=== PATIENT | female | born 1940 | race Caucasian/White ===

== ENCOUNTER 2023-03-25 17:36 | Emergency (ER) | payer OTHER, SELFPAY ==
[2023-03-25 17:39] VITALS: BP 196/105
[2023-03-25 17:40] VITALS: BP 196/105
[2023-03-25 17:56] LABS: % Basophils 0.2 % (0-2); % Immature Granulocytes 0.3 % (0-0.5); % Lymphocytes 21.4 % (20.5-51.1); % Monocytes 5.4 % (1.7-9.3); % Neutrophils 71.7 % (42.2-75.2); Absolute Eosinophils 0.1 10^3/uL (0-0.7); Absolute Monocytes 0.5 10^3/uL (0.1-0.6); Absolute Neutrophils 6.8 10^3/uL (1.4-6.5); Hemoglobin 14.3 g/dL (12.0-16.0); Mean Corp Hgb Conc. 34.9 g/dL (33.0-37.0); Mean Corpuscular Volume 88.7 fL (81.0-99.0); Mean Platelet Volume 9.8 fL (7.4-10.4); Nucleated Red Blood Cells % 0 %; Platelet Count 163 10^3/uL (130-400); Red Blood Cell Count 4.62 10^6/uL (4.20-5.40); Red Cell Dist. Width 12.8 % (11.5-14.5); White Blood Cell Count 9.4 10^3/uL (4.8-10.8)
[2023-03-25 18:00] VITALS: BP 177/98
[2023-03-25 18:03] LABS: Urine Albumin Negative (Neg - Trace); Urine Bilirubin Negative (Negative); Urine Character Clear (Clear); Urine Color Yellow; Urine Glucose Negative (Negative); Urine Ketone Negative (Negative); Urine Leukocyte Trace (Negative); Urine Nitrite Negative (Negative); Urine Occult Blood Trace (Negative); Urine Specific Gravity 1.015 (<1.030); Urine Urobilinogen Negative (Neg - 1+)
[2023-03-25 18:13] LABS: ALT (SGPT) 24 U/L (0-35); AST (SGOT) 35 U/L (14-36); Albumin 4.4 g/dl (3.5-5.0); Alkaline Phosphatase 75 U/L (38-126); Blood Urea Nitrogen 27 mg/dl (7-17); Calcium 9.1 mg/dl (8.4-10.2); Carbon Dioxide 29 mmol/L (22-30); Chloride 104 mmol/L (98-107); Glucose 98 mg/dl (70-99); Potassium 4.1 mmol/L (3.5-5.1); Sodium 136 mmol/L (135-145); Total Bilirubin 0.8 mg/dl (0.2-1.3); Total Protein 6.7 g/dl (6.3-8.2); eGFR > 60.00
[2023-03-25 18:13] LABS: Urine Bacteria Moderate (Negative); Urine Red Blood Cell 0-2 /HPF (0-2); Urine Squamous Cell 16-20 /LPF (Few)
--- NOTE | 2023-03-25 18:26 | ED.GENMED ---
History of Present Illness
General
Chief Complaint: Abdominal Symptoms
Source: family (Daughters who are caregivers and lives with the patient are at bedside providing some of the history)
Exam Limitations: dementia
Time Seen by Provider: 03/25/23 18:26
Nursing documentation reviewed up to this point in time: agreed with
Travel History
Have you had any contact with someone who has COVID-19?: No
Do you have any symptoms of coronavirus? Fever > 100 degrees, chills, cough, shortness of breath, sore throat, loss of taste or smell, muscle aches, or headache?: No
History of Present Illness
History of Present Illness:
82-year-old patient with history of Alzheimer's, TIA, HTN, HLD presents from home for abdominal pain. Daughter states patient has had abdominal pain since this morning, that she was doubled over in pain earlier this evening, patient was asked if
she wants to come to the hospital and usually she will say no but she said she wanted to come this time. There has been no fever, no vomiting or diarrhea. Patient had a bowel movement this morning. She has had no difficulty, burning or urgency to
urinate. She has been eating and drinking as usual..
Past History
Past History
ED Past Medical History: CVA, HTN, Hypercholesterolemia and Other (Dementia)
ED Past Surgical History: Other (Hernia repair)
Social History
Tobacco: Non-smoker
Living: with family
Review of Systems
Review of Systems
Allergies reviewed?: Yes
All Other Systems: ROS reviewed and negative except as documented in HPI and ROS
Constitutional: Denies fever, fatigue or chills
Respiratory: Denies trouble breathing
Cardiac: Denies chest pain
ABD/GI: Reports abdominal pain; Denies nausea, vomiting, diarrhea, constipated or anorexia
: Denies dysuria, frequency or difficulty voiding
Musculoskeletal: Denies edema
Skin: Reports no symptoms
Neurological: Denies weakness
Phy Exam
Physical Exam
Physical Exam:
GENERAL: No acute distress. Alert, confused from dementia, does not know where she is
CONSTITUTIONAL: Afebrile.
EYES: PERRL, conjunctivae normal
ENMT: moist mucus membranes, Pharynx nl
RESPIRATORY: Regular respirations, nonlabored, lungs clear.
CARDIOVASCULAR: Regular rate and rhythm, no murmurs, no rubs.
GI: Soft, nondistended, patient winces mildly with palpation of all areas of her abdomen. No palpable masses. Normal BS
MUSCULOSKELETAL: Moves with ease. Well perfused.
SKIN: Warm, dry, pale
PSYCH: Normal mood and affect. Well kept, interactive and appropriate
NEUROLOGIC: Awake, alert, pleasant, confused. No focal neurological deficits
Course
Orders/Labs/Results
Orders:
Orders
03/25/23 17:50
Complete Blood Count/With Diff Urgent
Comprehensive Metabolic Panel Urgent
03/25/23 17:57
Urinalysis Reflex To Culture Urgent
Date Specimen was Collected: 03/25/23
Time Specimen was Collected: 17:53
Urine Microscopic Reflex Cult Urgent
Urine Culture Urgent
ELLE Source: U
Specimen Description:
Date Specimen was Collected: 03/25/23
Time Specimen was Collected: 17:53
03/25/23 18:27
CT Abd/Pel (IV only)-DH only Urgent
Comment:
Reason For Exam: general abd pain, pt demented
Abnormal Lab Results
03/25/23 03/25/23
17:50 17:57
Absolute Neuts (auto) 6.8 H 10^3/uL
(1.4-6.5)
BUN 27 H mg/dl
(7-17)
Creatinine 0.5 L mg/dL
(0.6-1.0)
Ur Occult Blood Reflex Trace A
(Negative)
Leukocyte Esterase Rfl Trace A
(Negative)
Urine Bacteria (Reflex) Moderate A
(Negative)
03/25/23 17:50
03/25/23 17:50
Vital Signs
Initial and Last Documented VS:
Initial Vital Signs
Temp Pulse Resp BP Pulse Ox
98.5 F 89 16 196/105 97
03/25/23 17:39 03/25/23 17:39 03/25/23 17:39 03/25/23 17:39 03/25/23 17:39
Last Documented Vital Signs
Temp Pulse Resp BP Pulse Ox
98.5 F 83 14 167/111 97
03/25/23 17:39 03/25/23 20:00 03/25/23 20:00 03/25/23 20:00 03/25/23 17:39
MDM/Problems Addressed
Differential Diagnosis Includes:
constipation, diverticulitis
MDM/Problems Addressed:
82-year-old patient with history of Alzheimer's, TIA, HTN, HLD presents from home for abdominal pain.
Daughter states patient has had abdominal pain since this morning, that she was doubled over in pain earlier this evening, patient was asked if she wants to come to the hospital and usually she will say no but she said she wanted to come this time.
There has been no fever, no vomiting or diarrhea. Patient had a bowel movement this morning. She has had no difficulty, burning or urgency to urinate. She has been eating and drinking as usual.
Daughter states pt had a CT abdomen in 02/14 after a fall and she thinks it said 'diverticu...' and is concerned she may have 'that.'
Explained to daughter diverticulum and diverticulitis.
03/25/2023 1827 PM
CBC normal
CMP normal save for elevated BUN at 27
UA negative
03/25/[address] abdomen pelvis with IV only contrast: No significant abnormality identified, mild diffuse colonic stool burden may reflect constipation.
There is diverticulosis w/o diverticulitis
CT report reviewed with daughter. All labs, U/A normal. Copies given to daughter. Nothing to explain abd pain in today's workup other than possible constipation.
*Critical Care Note
Total Time (30-74mins, 75-104mins- exclusive of procedures): Not Applicable
ED Attending Note
-
Portions of this chart may have been created with voice recognition software.� Occasional wrong word or��sound alike� substitutions may have occurred due to the inherent limitations of voice recognition software.
Discharge Plan
Departure
Patient Disposition: Home (Routine Discharge)
Date of Disposition: 03/25/23
Time of Disposition: 19:54
Patient with high blood pressure during this ER visit?: No
Condition: Good
Discharge Problem:
Abdominal pain
Instructions: Constipation, Adult (DC), Abdominal Pain
Prescriptions:
No Action
atorvastatin 10 mg Tablet
10 mg PO DAILY
donepezil 10 mg Tablet
10 mg PO HS
clopidogrel 75 mg Tablet
75 mg PO DAILY
famotidine 20 mg Tablet
20 mg PO BID
pravastatin 10 mg Tablet
10 mg PO DAILY
lisinopril 5 mg Tablet
5 mg PO DAILY
oxybutynin chloride 5 mg Tablet
10 mg PO BID
memantine 5 mg Tablet
5 mg PO BID
amoxicillin 500 mg Capsule
500 mg PO Q8H Qty: 10 0RF
Referrals:
UNKNOWN - PT DOES,NOT KNOW [Unknown Provider] -
Activity Restrictions/Additional Instructions:
As we discussed, the CAT scan shows nothing worrisome.
Lab work is normal
Urinalysis shows no sign of infection.
If the pain persist through the weekend, see your family doctor for reevaluation on Tuesday or Tuesday.
May return here at anytime for worsening abdominal pain or abdominal pain associated with vomiting, fever or seeming sicker in any way.
Interventions
Interventions:
*Risk Screen - Suicide Last Done: 03/25/23 17:42
*General Assessment Last Done: 03/25/23 17:42
*Neglect/Abuse Screening Last Done: 03/25/23 17:42
ED- Fall Risk Assessment Last Done: 03/25/23 20:15
*ED COVID-19 Vaccine History Last Done: 03/25/23 17:42
*Nursing Disposition Last Done: 03/25/23 20:15
XA-Gqljwx-Ejmecjfbxg Assessment Last Done: 03/25/23 17:42
Discharge Date and Time
Discharge Date/Time: 03/25/23 20:20
[2023-03-25 19:26] VITALS: BP 192/104
[2023-03-25 20:00] VITALS: BP 167/111
== END 2023-03-25 20:20 | disposition home or self-care (01) ==
LOC: EMR 17:36
PROVIDERS: EMERGENCY PHYSICIAN Emergency Medicine; FAMILY PHYSICIAN Family Medicine
DX: R10.9 Unspecified abdominal pain (principal); E78.00 Pure hypercholesterolemia, unspecified; I10 Essential (primary) hypertension; Z86.73 Personal history of transient ischemic attack (TIA), and cerebral infarction without residual deficits
CPT/HCPCS: 99285; 74177; 80053; 81003; 81015; 85025; 87086; Q9967

== ENCOUNTER → 2023-05-12 09:46 | Outpatient (REF) | payer OTHER, SELFPAY ==
[2023-05-12 10:25] LABS: % Basophils 0.5 % (0-2); % Eosinophils 1.9 % (0-6); % Immature Granulocytes 0.2 % (0-0.5); % Lymphocytes 27.6 % (20.5-51.1); % Monocytes 8.7 % (1.7-9.3); % Neutrophils 61.1 % (42.2-75.2); Absolute Eosinophils 0.1 10^3/uL (0-0.7); Absolute Lymphocytes 1.6 10^3/uL (1.2-3.4); Absolute Monocytes 0.5 10^3/uL (0.1-0.6); Absolute Neutrophils 3.5 10^3/uL (1.4-6.5); Hematocrit 39.9 % (37.0-47.0); Hemoglobin 13.3 g/dL (12.0-16.0); Mean Corp Hgb Conc. 33.3 g/dL (33.0-37.0); Mean Corpuscular Hgb 30.2 pg (27.0-31.0); Mean Corpuscular Volume 90.7 fL (81.0-99.0); Mean Platelet Volume 11.3 fL (7.4-10.4); Nucleated Red Blood Cells % 0 %; Platelet Count 155 10^3/uL (130-400); Red Cell Dist. Width 12.5 % (11.5-14.5); White Blood Cell Count 5.7 10^3/uL (4.8-10.8)
[2023-05-12 10:50] LABS: ALT (SGPT) 15 U/L (0-35); AST (SGOT) 25 U/L (14-36); Albumin 3.9 g/dl (3.5-5.0); Alkaline Phosphatase 66 U/L (38-126); Blood Urea Nitrogen 34 mg/dl (7-17); Calcium 9.1 mg/dl (8.4-10.2); Carbon Dioxide 28 mmol/L (22-30); Chloride 105 mmol/L (98-107); Glucose 89 mg/dl (70-99); HDL Cholesterol 50 mg/dl; LDL Cholesterol, Calculated 60 mg/dl; Potassium 4.5 mmol/L (3.5-5.1); Sodium 138 mmol/L (135-145); Total Bilirubin 0.8 mg/dl (0.2-1.3); Total Cholesterol 130 mg/dl (50-199); Total Protein 5.9 g/dl (6.3-8.2); Triglyceride 104 mg/dl (10-149); Very Low Density Lipoprotein 20 mg/dl (0-30); eGFR > 60.00
[2023-05-12 11:17] LABS: TSH 0.77 uIU/ml (0.47-4.68)
[2023-05-12 11:30] LABS: Glycohemoglobin (HgbA1c) 5.5 % (4.0-5.6)
== END ==
LOC: OLABN 09:46
PROVIDERS: ATTENDING PHYSICIAN Student in an Organized Health Care Education/Training Program
DX: E10.9 Type 1 diabetes mellitus without complications (principal); E78.5 Hyperlipidemia, unspecified; I10 Essential (primary) hypertension; F03.90 Unspecified dementia, unspecified severity, without behavioral disturbance, psychotic disturbance, mood disturbance, and anxiety; E83.42 Hypomagnesemia; E03.9 Hypothyroidism, unspecified
CPT/HCPCS: 36415; 80053; 80061; 83036; 83735; 84443; 85025

== ENCOUNTER → 2023-07-29 11:24 | Outpatient (REF) | payer OTHER, SELFPAY ==
[2023-07-29 12:39] LABS: Urine Albumin Trace (Neg - Trace); Urine Bilirubin 2+ (Negative); Urine Character Slightly Cloudy (Clear); Urine Color Red; Urine Glucose Negative (Negative); Urine Ketone Trace (Negative); Urine Leukocyte Negative (Negative); Urine Nitrite Positive (Negative); Urine Occult Blood Trace (Negative); Urine Urobilinogen 1+ (Neg - 1+)
[2023-07-29 12:56] LABS: Urine Mucus Few
[2023-07-29 12:58] LABS: Urine Bacteria Few (Negative); Urine Red Blood Cell 0-2 /HPF (0-2)
== END ==
LOC: OLABN 11:24
PROVIDERS: ATTENDING PHYSICIAN Student in an Organized Health Care Education/Training Program
DX: R35.0 Frequency of micturition (principal)
CPT/HCPCS: 36415; 81003; 81015; 87086

== ENCOUNTER → 2023-08-15 09:33 | Outpatient (REF) | payer OTHER, SELFPAY ==
[2023-08-15 11:36] LABS: Blood Urea Nitrogen 31 mg/dl (7-17); Carbon Dioxide 28 mmol/L (22-30); Chloride 105 mmol/L (98-107); Glucose 87 mg/dl (70-99); Sodium 140 mmol/L (135-145); eGFR > 60.00
== END ==
LOC: OLABN 09:33
PROVIDERS: ATTENDING PHYSICIAN Student in an Organized Health Care Education/Training Program
DX: I10 Essential (primary) hypertension (principal)
CPT/HCPCS: 36415; 80048

== ENCOUNTER → 2023-11-02 10:58 | Outpatient (REF) | payer OTHER, SELFPAY ==
[2023-11-02 12:08] LABS: % Basophils 0.2 % (0-2); % Eosinophils 0.3 % (0-6); % Immature Granulocytes 0.2 % (0-0.5); % Lymphocytes 9.9 % (20.5-51.1); % Monocytes 5.1 % (1.7-9.3); % Neutrophils 84.3 % (42.2-75.2); Absolute Lymphocytes 1.1 10^3/uL (1.2-3.4); Absolute Monocytes 0.6 10^3/uL (0.1-0.6); Absolute Neutrophils 9.1 10^3/uL (1.4-6.5); Hematocrit 40.4 % (37.0-47.0); Hemoglobin 13.3 g/dL (12.0-16.0); Mean Corp Hgb Conc. 32.9 g/dL (33.0-37.0); Mean Corpuscular Hgb 28.2 pg (27.0-31.0); Mean Corpuscular Volume 85.6 fL (81.0-99.0); Mean Platelet Volume 10.8 fL (7.4-10.4); Nucleated Red Blood Cells % 0 %; Platelet Count 157 10^3/uL (130-400); Red Blood Cell Count 4.72 10^6/uL (4.20-5.40); Red Cell Dist. Width 13.1 % (11.5-14.5); White Blood Cell Count 10.8 10^3/uL (4.8-10.8)
[2023-11-02 12:45] LABS: ALT (SGPT) 13 U/L (0-35); AST (SGOT) 21 U/L (14-36); Albumin 4.1 g/dl (3.5-5.0); Alkaline Phosphatase 55 U/L (38-126); Blood Urea Nitrogen 33 mg/dl (7-17); Calcium 9.5 mg/dl (8.4-10.2); Carbon Dioxide 28 mmol/L (22-30); Chloride 103 mmol/L (98-107); Glucose 124 mg/dl (70-99); Potassium 4.2 mmol/L (3.5-5.1); Sodium 141 mmol/L (135-145); Total Bilirubin 0.7 mg/dl (0.2-1.3); eGFR > 60.00
== END ==
LOC: OLABN 10:58
PROVIDERS: ATTENDING PHYSICIAN Student in an Organized Health Care Education/Training Program
DX: R11.10 Vomiting, unspecified (principal)
CPT/HCPCS: 36415; 80053; 85025

== ENCOUNTER → 2023-12-23 11:09 | Outpatient (REF) | payer OTHER, SELFPAY ==
[2023-12-23 12:13] LABS: Urine Albumin Trace (Neg - Trace); Urine Bilirubin Negative (Negative); Urine Character Slightly Cloudy (Clear); Urine Color Yellow; Urine Glucose Negative (Negative); Urine Ketone Negative (Negative); Urine Leukocyte 2+ (Negative); Urine Nitrite Negative (Negative); Urine Occult Blood Negative (Negative); Urine Specific Gravity 1.025 (<1.030); Urine Urobilinogen Negative (Neg - 1+)
[2023-12-23 12:19] LABS: % Basophils 0.3 % (0-2); % Eosinophils 1.9 % (0-6); % Immature Granulocytes 0.2 % (0-0.5); % Lymphocytes 24.7 % (20.5-51.1); % Monocytes 8.9 % (1.7-9.3); Absolute Eosinophils 0.1 10^3/uL (0-0.7); Absolute Lymphocytes 1.5 10^3/uL (1.2-3.4); Absolute Monocytes 0.6 10^3/uL (0.1-0.6); Hematocrit 40.1 % (37.0-47.0); Mean Corp Hgb Conc. 32.4 g/dL (33.0-37.0); Mean Corpuscular Hgb 28.3 pg (27.0-31.0); Mean Corpuscular Volume 87.4 fL (81.0-99.0); Mean Platelet Volume 10.8 fL (7.4-10.4); Nucleated Red Blood Cells % 0 %; Platelet Count 174 10^3/uL (130-400); Red Blood Cell Count 4.59 10^6/uL (4.20-5.40); Red Cell Dist. Width 12.9 % (11.5-14.5); White Blood Cell Count 6.2 10^3/uL (4.8-10.8)
[2023-12-23 12:36] LABS: Blood Urea Nitrogen 28 mg/dl (7-17); Carbon Dioxide 29 mmol/L (22-30); Chloride 105 mmol/L (98-107); Glucose 94 mg/dl (70-99); Potassium 4.2 mmol/L (3.5-5.1); Sodium 143 mmol/L (135-145); eGFR > 60.00
[2023-12-23 12:48] LABS: Urine Amorphous Seen; Urine Mucus Few
[2023-12-23 12:49] LABS: Urine Red Blood Cell 0-2 /HPF (0-2); Urine White Cell 90-100 /HPF (0-5)
== END ==
LOC: OLABN 11:09
PROVIDERS: ATTENDING PHYSICIAN Student in an Organized Health Care Education/Training Program
DX: I10 Essential (primary) hypertension (principal); R35.0 Frequency of micturition
CPT/HCPCS: 36415; 80048; 81003; 81015; 85025; 87086

== ENCOUNTER → 2024-01-25 09:50 | Outpatient (REF) | payer OTHER, SELFPAY ==
[2024-01-25 12:33] LABS: % Basophils 0.3 % (0-2); % Eosinophils 0.8 % (0-6); % Immature Granulocytes 0.3 % (0-0.5); % Lymphocytes 20.7 % (20.5-51.1); % Monocytes 6.2 % (1.7-9.3); % Neutrophils 71.7 % (42.2-75.2); Absolute Eosinophils 0.1 10^3/uL (0-0.7); Absolute Lymphocytes 1.4 10^3/uL (1.2-3.4); Absolute Monocytes 0.4 10^3/uL (0.1-0.6); Absolute Neutrophils 4.7 10^3/uL (1.4-6.5); Hematocrit 44.6 % (37.0-47.0); Hemoglobin 14.7 g/dL (12.0-16.0); Mean Corpuscular Hgb 29.4 pg (27.0-31.0); Mean Corpuscular Volume 89.2 fL (81.0-99.0); Mean Platelet Volume 11.1 fL (7.4-10.4); Nucleated Red Blood Cells % 0 %; Platelet Count 186 10^3/uL (130-400); White Blood Cell Count 6.6 10^3/uL (4.8-10.8)
== END ==
LOC: OLABN 09:50
PROVIDERS: ATTENDING PHYSICIAN Student in an Organized Health Care Education/Training Program
DX: R11.10 Vomiting, unspecified (principal)
CPT/HCPCS: 36415; 85025

== ENCOUNTER → 2024-01-26 10:35 | Outpatient (REF) | payer OTHER, SELFPAY ==
[2024-01-26 11:21] LABS: % Basophils 0.3 % (0-2); % Eosinophils 1.8 % (0-6); % Immature Granulocytes 0.2 % (0-0.5); % Lymphocytes 24.5 % (20.5-51.1); % Monocytes 7.8 % (1.7-9.3); % Neutrophils 65.4 % (42.2-75.2); Absolute Eosinophils 0.1 10^3/uL (0-0.7); Absolute Lymphocytes 1.5 10^3/uL (1.2-3.4); Absolute Monocytes 0.5 10^3/uL (0.1-0.6); Absolute Neutrophils 4.1 10^3/uL (1.4-6.5); Hematocrit 45.8 % (37.0-47.0); Hemoglobin 14.2 g/dL (12.0-16.0); Mean Corpuscular Hgb 28.5 pg (27.0-31.0); Mean Platelet Volume 10.6 fL (7.4-10.4); Nucleated Red Blood Cells % 0 %; Platelet Count 171 10^3/uL (130-400); Red Blood Cell Count 4.98 10^6/uL (4.20-5.40); Red Cell Dist. Width 12.8 % (11.5-14.5); White Blood Cell Count 6.3 10^3/uL (4.8-10.8)
[2024-01-26 11:51] LABS: Blood Urea Nitrogen 32 mg/dl (7-17); Calcium 9.3 mg/dl (8.4-10.2); Carbon Dioxide 31 mmol/L (22-30); Chloride 103 mmol/L (98-107); Glucose 100 mg/dl (70-99); Potassium 4.3 mmol/L (3.5-5.1); Sodium 144 mmol/L (135-145); eGFR > 60.00
== END ==
LOC: OLABN 10:35
PROVIDERS: ATTENDING PHYSICIAN Student in an Organized Health Care Education/Training Program
DX: R11.10 Vomiting, unspecified (principal)
CPT/HCPCS: 36415; 80048; 85025

== ENCOUNTER 2024-03-11 10:37 | Emergency (ER) | payer OTHER, SELFPAY ==
[2024-03-11 10:45] VITALS: BP 154/85
[2024-03-11 12:00] VITALS: BP 131/107
[2024-03-11 12:10] LABS: ALT (SGPT) 20 U/L (0-35); AST (SGOT) 40 U/L (14-36); Albumin 4.1 g/dl (3.5-5.0); Alkaline Phosphatase 70 U/L (38-126); Blood Urea Nitrogen 29 mg/dl (7-17); Calcium 8.9 mg/dl (8.4-10.2); Carbon Dioxide 29 mmol/L (22-30); Chloride 102 mmol/L (98-107); Glucose 97 mg/dl (70-99); Potassium 4.2 mmol/L (3.5-5.1); Sodium 138 mmol/L (135-145); Total Bilirubin 1.2 mg/dl (0.2-1.3); Total Protein 6.1 g/dl (6.3-8.2); eGFR > 60.00
--- NOTE | 2024-03-11 12:18 | ED.GENMED ---
History of Present Illness
General
Chief Complaint: Fall
Time Seen by Provider: 03/11/24 11:16
History of Present Illness
History of Present Illness:
83-year-old female with history of dementia presenting from nursing facility for unwitnessed fall. Patient allegedly fell today, complaining of left leg pain. Patient is usually able to ambulate and they report that she has not been able to
ambulate. Patient is a very limited historian given her dementia. Patient unsure if she hit her head. No additional history obtained at this time
Past History
Past History
ED Past Medical History: CVA, HTN, Hypercholesterolemia and Other (Dementia)
ED Past Surgical History: Other (Hernia repair)
Social History
Tobacco: Non-smoker
Living: with family
Phy Exam
Physical Exam
Physical Exam:
General: Well-appearing, no clinical signs of dehydration, nontoxic and in no acute distress
Head: Atraumatic
HEENT: protecting airway
Neck: appears supple, no cervical tenderness
CV: Normal heart rate, regular rhythm, no evidence of cyanosis
Resp: No accessory muscle use, no increased work of breathing, lungs clear to auscultation bilaterally
Abd: Soft and non-distended, no tenderness to palpation
Extremities: No deformities, no swelling, no erythema. Hips held in flexion with pain to bilateral hip joints. Distal sensation and pulses intact
Neuro: alert, oriented to self only, reported baseline
: deferred
Rectal: deferred
Psych: Normal affect
Skin: Intact
Course
Orders/Labs/Results
Orders:
Orders
03/11/24 11:31
CT Head W/o Iv Contrast Urgent
Comment:
Reason For Exam: fal, unwitnessed
CR Hips GELACIO w/wo Pel Min 5 Vw* Urgent
Reason For Exam: fall, pain
Include a pelvis x-ray?: Yes
03/11/24 11:46
Complete Blood Count/With Diff Urgent
Comprehensive Metabolic Panel Urgent
Abnormal Lab Results
03/11/24
11:46
Absolute Neuts (auto) 7.1 H 10^3/uL
(1.4-6.5)
Absolute Lymphs (auto) 1.0 L 10^3/uL
(1.2-3.4)
Neutrophils % 82.4 H %
(42.2-75.2)
Lymphocytes % 11.2 L %
(20.5-51.1)
BUN 29 H mg/dl
(7-17)
Creatinine 0.5 L mg/dL
(0.6-1.0)
AST 40 H U/L
(14-36)
Total Protein 6.1 L g/dl
(6.3-8.2)
03/11/24 11:46
03/11/24 11:46
Vital Signs
Initial and Last Documented VS:
Initial Vital Signs
Temp Pulse Resp BP Pulse Ox
98.9 F 78 16 154/85 95
03/11/24 10:45 03/11/24 10:45 03/11/24 10:45 03/11/24 10:45 03/11/24 10:45
Last Documented Vital Signs
Temp Pulse Resp BP Pulse Ox
98.9 F 78 16 131/107 95
03/11/24 10:45 03/11/24 10:45 03/11/24 10:45 03/11/24 12:00 03/11/24 12:00
MDM/Problems Addressed
MDM/Problems Addressed:
83-year-old female with history of dementia presenting after an unwitnessed fall. Vital signs significant for mild hypertension.
On exam patient is resting comfortably, no acute distress no signs of head trauma, however given unwitnessed and patient limited story and, will screen with CT brain. Patient with generalized tenderness, will obtain x-rays of the hips. Plan for
screening laboratory analysis. Patient otherwise hemodynamically stable
14:00 -patient's labs are unremarkable. CT brain without acute process. X-rays of the hip without fracture or malalignment. Patient ambulated without difficulty. At this time feel stable for discharge back to nursing facility. Will provide
transportation
*Critical Care Note
Total Time (30-74mins, 75-104mins- exclusive of procedures): Not Applicable
ED Attending Note
-
Portions of this chart may have been created with voice recognition software.� Occasional wrong word or��sound alike� substitutions may have occurred due to the inherent limitations of voice recognition software.
Discharge Plan
Departure
Patient Disposition: Home (Routine Discharge)
Date of Disposition: 03/11/24
Time of Disposition: 14:11
Patient with high blood pressure during this ER visit?: No
Condition: Good
Discharge Problem:
Fall, Strain of hip
Instructions: Preventing falls in adults, Hip Pain ED
Prescriptions:
No Action
atorvastatin 10 mg Tablet
10 mg PO DAILY
donepezil 10 mg Tablet
10 mg PO HS
clopidogrel 75 mg Tablet
75 mg PO DAILY
famotidine 20 mg Tablet
20 mg PO BID
pravastatin 10 mg Tablet
10 mg PO DAILY
lisinopril 5 mg Tablet
5 mg PO DAILY
oxybutynin chloride 5 mg Tablet
10 mg PO BID
memantine 5 mg Tablet
5 mg PO BID
amoxicillin 500 mg Capsule
500 mg PO Q8H Qty: 10 0RF
Referrals:
Paolo Meyer DO [Family Provider] -
Activity Restrictions/Additional Instructions:
You were seen in the emergency department for a fall
You were found to have normal imaging of your head and your hips. You were able to walk without difficulty. Please take Tylenol or Motrin as needed for your pain
Please follow-up closely with your primary care physician.
Return to the emergency department for any worsening of your symptoms, or any development of chest pain, difficulty breathing, abdominal pain with persistent vomiting and inability to tolerate food or liquid by mouth (concern for dehydration),
weakness, headache or confusion, fever greater than 100.4, or any additional symptoms that are concerning to you.
Thank you for choosing [facility].
Interventions
Interventions:
*Risk Screen - Suicide Last Done: 03/11/24 10:45
*General Assessment Last Done: 03/11/24 10:45
*Neglect/Abuse Screening Last Done: 03/11/24 10:45
ED- Fall Risk Assessment Last Done: 03/11/24 10:56
*ED COVID-19 Vaccine History Last Done: 03/11/24 10:54
ED-Musculoskeletal Assessment Last Done: 03/11/24 10:54
ED- Neurological Assessment Last Done: 03/11/24 10:54
ED-Skin Assessment Last Done: 03/11/24 10:54
Discharge Date and Time
Print Language: MONGOLIAN
[2024-03-11 12:20] LABS: % Basophils 0.1 % (0-2); % Eosinophils 0.2 % (0-6); % Immature Granulocytes 0.4 % (0-0.5); % Lymphocytes 11.2 % (20.5-51.1); % Monocytes 5.7 % (1.7-9.3); % Neutrophils 82.4 % (42.2-75.2); Absolute Monocytes 0.5 10^3/uL (0.1-0.6); Absolute Neutrophils 7.1 10^3/uL (1.4-6.5); Hematocrit 42.2 % (37.0-47.0); Mean Corp Hgb Conc. 33.2 g/dL (33.0-37.0); Mean Corpuscular Volume 87.4 fL (81.0-99.0); Mean Platelet Volume 10.4 fL (7.4-10.4); Nucleated Red Blood Cells % 0 %; Platelet Count 136 10^3/uL (130-400); Red Blood Cell Count 4.83 10^6/uL (4.20-5.40); White Blood Cell Count 8.6 10^3/uL (4.8-10.8)
[2024-03-11 16:25] VITALS: BP 164/78
== END 2024-03-11 17:41 | disposition home or self-care (01) ==
LOC: EMR 10:37
PROVIDERS: EMERGENCY PHYSICIAN Student in an Organized Health Care Education/Training Program; FAMILY PHYSICIAN Student in an Organized Health Care Education/Training Program
DX: S76.019A Strain of muscle, fascia and tendon of unspecified hip, initial encounter (principal); W19.XXXA Unspecified fall, initial encounter; Y92.89 Other specified places as the place of occurrence of the external cause; F03.90 Unspecified dementia, unspecified severity, without behavioral disturbance, psychotic disturbance, mood disturbance, and anxiety; I10 Essential (primary) hypertension; E78.00 Pure hypercholesterolemia, unspecified; Z86.73 Personal history of transient ischemic attack (TIA), and cerebral infarction without residual deficits
CPT/HCPCS: 99284; 70450; 73523; 80053; 85025

== ENCOUNTER 2024-04-28 19:34 | Emergency (ER) | payer OTHER, SELFPAY ==
[2024-04-28 19:36] VITALS: BP 175/90
--- NOTE | 2024-04-28 19:46 | ED.GENMED ---
History of Present Illness
General
Chief Complaint: Fall
Time Seen by Provider: 04/28/24 19:38
History of Present Illness
History of Present Illness:
83-year-old female history of Alzheimer's, hypertension, hyperlipidemia presenting status post fall. Per EMS, patient was walking near the nurses station that was unintended when she had an unwitnessed fall was heard by staff. Per EMS, no loss of
consciousness. Patient is on Plavix. Patient is at baseline mental status. No focal pain. Tetanus unknown
Past History
Past History
ED Past Medical History: CVA, HTN, Hypercholesterolemia and Other (Dementia)
ED Past Surgical History: Other (Hernia repair)
Social History
Tobacco: Non-smoker
Living: with family
Phy Exam
Physical Exam
Physical Exam:
General: Alert, no acute distress
Head: 1cm laceration to posterior scalp with surrounding superficial abrasion and swelling
Eyes: clear conjunctiva
Neck: supple
Cardiac: regular rate and rhythm, no murmur
Lungs: clear to auscultation bilaterally. No wheezes, rales, or rhonchi. Speaking full unlabored sentences. No respiratory distress.
Abdomen: soft, nondistended nontender. No rebound or guarding.
MSK: no lower extremity edema bilaterally. No deformity. Patient says 'ouch' wherever I touch patient even with light touch. Full range of motion bilateral hips and knees with no deformity. No midline cervical tenderness to palpation
Skin: warm, dry
Neuro: Alert and oriented to self only at baseline. 5 out of 5 strength bilateral upper and lower extremities.
Course
Orders/Labs/Results
Orders:
Orders
04/28/24 19:46
CT Cervical Spine W/o Iv Contr Urgent
Comment:
Reason For Exam: fall head trauma
CT Head W/o Iv Contrast Urgent
Comment:
Reason For Exam: fall head trauma
04/28/24 22:08
Tetanus/Diphth/Acelpertussis [Adacel] 0.5 ml IM .ONCE ONE
Vital Signs
Initial and Last Documented VS:
Initial Vital Signs
Temp Pulse Resp BP Pulse Ox
98.6 F 91 18 175/90 98
04/28/24 19:36 04/28/24 19:36 04/28/24 19:36 04/28/24 19:36 04/28/24 19:36
Last Documented Vital Signs
Temp Pulse Resp BP Pulse Ox
98.6 F 84 21 151/87 97
04/28/24 19:36 04/28/24 22:15 04/28/24 22:15 04/28/24 21:00 04/28/24 21:18
Procedures
Laceration Closure
Posterior Scalp:
Status of Wound: clean
Size of Wound in cm: 1
Description of Wound Edges: sharp
Preparation: cleaned with saline
Anesthesia: 2% Lidocaine with epi
Revision/Debridement: routine- no revision
Type of Closure: single layer closure
Skin Closure Material: 5-0 prolene
Number of sutures: 3
MDM/Problems Addressed
MDM/Problems Addressed:
83-year-old female history of Alzheimer's, hypertension, hyperlipidemia presenting status post fall. No loss of consciousness. CT head/cervical spine shows no acute trauma. Repaired laceration. Updated tetanus. Patient is at baseline mental
status. Vital stable. Stable for discharge with PCP follow-up for suture removal
*Critical Care Note
Total Time (30-74mins, 75-104mins- exclusive of procedures): Not Applicable
ED Attending Note
-
Portions of this chart may have been created with voice recognition software.� Occasional wrong word or��sound alike� substitutions may have occurred due to the inherent limitations of voice recognition software.
Discharge Plan
Departure
Patient Disposition: Home (Routine Discharge)
Date of Disposition: 04/28/24
Time of Disposition: 21:45
Patient with high blood pressure during this ER visit?: Yes
Discharge Problem:
Fall, Head trauma, Laceration of scalp
Instructions: Head Injury in Adults (DC), Laceration Repair With Stitches (DC), BLOOD PRESSURE
Prescriptions:
No Action
atorvastatin 10 mg Tablet
10 mg PO DAILY
donepezil 10 mg Tablet
10 mg PO HS
clopidogrel 75 mg Tablet
75 mg PO DAILY
lisinopril 5 mg Tablet
5 mg PO DAILY
latanoprost 0.005 % Drops
1 drp BOTH EYES HS
buspirone 5 mg Tablet
5 mg PO BID
acetaminophen 325 mg Tablet
650 mg PO Q4HPRN MDD 3000MG PRN (Reason: MILD PAIN, FEVER >100.4)
lidocaine [Lidocaine Pain Relief] 4 % Adhesive Patch,Medicated
1 patch TOPICAL DAILY
Rx Instructions:
ON AM, OFF PM, LOWER BACK
polyethylene glycol 3350 17 gram Powder In Packet
17 g PO DAILY
ondansetron HCl 4 mg Tablet
4 mg PO Q6HPRN PRN (Reason: NAUSEA AND VOMITING)
tramadol 50 mg Tablet
50 mg PO BIDPRN PRN (Reason: SEVERE PAIN)
methenamine hippurate 1 gram Tablet
1 g PO BID
magnesium hydroxide [Milk of Magnesia] 400 mg/5 mL Suspension
2,400 mg PO HSPRN PRN (Reason: CONSTIPATION)
bisacodyl 10 mg Suppository
10 mg [place] DAILYPRN PRN (Reason: 3 DAYS NO BM & MOM/LACTULOSE INEFFECTIVE)
docusate sodium 100 mg Capsule
100 mg PO DAILY
oxybutynin chloride 5 mg Tablet Extended Release 24hr
5 mg PO DAILY
memantine 10 mg Tablet
10 mg PO QPM
Centrum Silver Women 8 mg iron-400 mcg-50 mcg Tablet
1 tab PO QPM
Activity Restrictions/Additional Instructions:
Take Tylenol 975 mg every 6 hours as needed for pain
There are 3 nondissolveable blue sutures that need to be removed in 7-10 days. Return to the emergency department, follow up with primary care doctor or go to urgent care to have them removed. You may wash hair gently with soap and water starting
tomorrow
Follow-up with primary care doctor in 1 to 2 days
Return to the emergency department for new/worsening symptoms
Interventions
Interventions:
*Risk Screen - Suicide Last Done: 04/28/24 19:36
*General Assessment Last Done: 04/28/24 19:36
*Neglect/Abuse Screening Last Done: 04/28/24 19:36
*ED- Fall Risk Assessment Last Done: 04/28/24 20:44
*ED COVID-19 Vaccine History Last Done: 04/28/24 20:44
ED-Musculoskeletal Assessment Last Done: 04/28/24 20:43
ED- Neurological Assessment Last Done: 04/28/24 20:37
ED-Skin Assessment Last Done: 04/28/24 20:37
Discharge Date and Time
Print Language: POLISH
[2024-04-28 20:00] VITALS: BP 161/89
[2024-04-28 21:00] VITALS: BP 151/87
[2024-04-28] MEDS: ADACEL 0.5 ML IM (22:29)
[2024-04-28 23:59] VITALS: BP 162/85
== END 2024-04-29 01:50 ==
LOC: EMR 19:34
PROVIDERS: EMERGENCY PHYSICIAN Emergency Medicine; FAMILY PHYSICIAN Student in an Organized Health Care Education/Training Program
DX: S01.01XA Laceration without foreign body of scalp, initial encounter (principal); W19.XXXA Unspecified fall, initial encounter; I10 Essential (primary) hypertension; E78.00 Pure hypercholesterolemia, unspecified; Z86.73 Personal history of transient ischemic attack (TIA), and cerebral infarction without residual deficits; G30.9 Alzheimer's disease, unspecified; F02.80 Dementia in other diseases classified elsewhere, unspecified severity, without behavioral disturbance, psychotic disturbance, mood disturbance, and anxiety; Z23 Encounter for immunization; Z79.02 Long term (current) use of antithrombotics/antiplatelets
CPT/HCPCS: 12001; 90471; 99284; 70450; 72125; 90715

== ENCOUNTER → 2024-05-01 09:11 | Outpatient (REF) | payer OTHER, SELFPAY ==
[2024-05-01 09:28] LABS: % Basophils 0.3 % (0-2); % Eosinophils 4.2 % (0-6); % Immature Granulocytes 0.1 % (0-0.5); % Lymphocytes 23.7 % (20.5-51.1); % Monocytes 9.5 % (1.7-9.3); % Neutrophils 62.2 % (42.2-75.2); Absolute Eosinophils 0.3 10^3/uL (0-0.7); Absolute Lymphocytes 1.6 10^3/uL (1.2-3.4); Absolute Monocytes 0.7 10^3/uL (0.1-0.6); Absolute Neutrophils 4.2 10^3/uL (1.4-6.5); Hematocrit 38.2 % (37.0-47.0); Hemoglobin 12.4 g/dL (12.0-16.0); Mean Corp Hgb Conc. 32.5 g/dL (33.0-37.0); Mean Corpuscular Hgb 28.7 pg (27.0-31.0); Mean Corpuscular Volume 88.4 fL (81.0-99.0); Mean Platelet Volume 10.8 fL (7.4-10.4); Nucleated Red Blood Cells % 0 %; Platelet Count 155 10^3/uL (130-400); Red Blood Cell Count 4.32 10^6/uL (4.20-5.40); Red Cell Dist. Width 13.9 % (11.5-14.5); White Blood Cell Count 6.8 10^3/uL (4.8-10.8)
[2024-05-01 09:44] LABS: ALT (SGPT) 12 U/L (0-35); AST (SGOT) 22 U/L (14-36); Albumin 3.7 g/dl (3.5-5.0); Alkaline Phosphatase 73 U/L (38-126); Blood Urea Nitrogen 26 mg/dl (7-17); Calcium 8.9 mg/dl (8.4-10.2); Carbon Dioxide 29 mmol/L (22-30); Chloride 104 mmol/L (98-107); Glucose 93 mg/dl (70-99); Sodium 138 mmol/L (135-145); Total Bilirubin 0.9 mg/dl (0.2-1.3); Total Protein 5.6 g/dl (6.3-8.2); eGFR > 60.00
[2024-05-01 10:11] LABS: Urine Albumin 1+ (Neg - Trace); Urine Bilirubin Negative (Negative); Urine Character Clear (Clear); Urine Color Yellow; Urine Glucose Negative (Negative); Urine Ketone Negative (Negative); Urine Leukocyte 2+ (Negative); Urine Nitrite Positive (Negative); Urine Occult Blood 1+ (Negative); Urine Specific Gravity 1.025 (<1.030); Urine Urobilinogen Negative (Neg - 1+)
[2024-05-01 10:45] LABS: Urine Bacteria Moderate (Negative); Urine Squamous Cell >30 /LPF (Few); Urine White Cell 60-70 /HPF (0-5)
[2024-05-01 10:48] LABS: Urine Red Blood Cell 0-2 /HPF (0-2)
== END ==
LOC: OLABN 09:11
PROVIDERS: ATTENDING PHYSICIAN Student in an Organized Health Care Education/Training Program
DX: I10 Essential (primary) hypertension (principal); R35.0 Frequency of micturition
CPT/HCPCS: 36415; 80053; 81003; 81015; 85025; 87077; 87086; 87186

== ENCOUNTER → 2024-06-30 08:48 | Outpatient (REF) | payer OTHER, SELFPAY ==
[2024-06-30 10:41] LABS: Urine Albumin 2+ (Neg - Trace); Urine Bilirubin 2+ (Negative); Urine Character Cloudy (Clear); Urine Color Amber; Urine Glucose Negative (Negative); Urine Ketone Negative (Negative); Urine Leukocyte 3+ (Negative); Urine Nitrite Positive (Negative); Urine Occult Blood 3+ (Negative); Urine Urobilinogen 3+ (Neg - 1+)
[2024-06-30 11:06] LABS: Urine Bacteria Many (Negative); Urine White Cell 40-50 /HPF (0-5)
== END ==
LOC: OLABN 08:48
PROVIDERS: ATTENDING PHYSICIAN Student in an Organized Health Care Education/Training Program
DX: R35.0 Frequency of micturition (principal)
CPT/HCPCS: 81003; 81015; 87086; 87088; 87186

== ENCOUNTER → 2024-08-28 10:39 | Outpatient (REF) | payer OTHER, SELFPAY ==
[2024-08-28 12:05] LABS: HDL Cholesterol 42 mg/dl; LDL Cholesterol, Calculated 93 mg/dl; Very Low Density Lipoprotein 22 mg/dl (0-30)
== END ==
LOC: OLABN 10:39
PROVIDERS: ATTENDING PHYSICIAN Student in an Organized Health Care Education/Training Program
DX: E78.5 Hyperlipidemia, unspecified (principal)
CPT/HCPCS: 36415; 80061

== ENCOUNTER → 2024-10-09 11:24 | Outpatient (REF) | payer OTHER, SELFPAY ==
[2024-10-10 13:03] LABS: Urine Character Cloudy (Clear)
[2024-10-10 13:21] LABS: Urine Red Blood Cell 0-2 /HPF (0-2); Urine Squamous Cell 0-2 /LPF (Few); Urine White Cell 0-2 /HPF (0-5)
== END ==
LOC: OLABN 11:24
PROVIDERS: ATTENDING PHYSICIAN Student in an Organized Health Care Education/Training Program
DX: R53.1 Weakness (principal)
CPT/HCPCS: 81003; 81015; 87086; 87088; 87186

== ENCOUNTER → 2024-10-10 11:03 | Outpatient (REF) | payer OTHER, SELFPAY ==
[2024-10-10 11:51] LABS: Hematocrit 40.6 % (37.0-47.0); Hemoglobin 12.9 g/dL (12.0-16.0); Mean Corp Hgb Conc. 31.8 g/dL (33.0-37.0); Mean Corpuscular Volume 88.1 fL (81.0-99.0); Nucleated Red Blood Cells % 0 %; Platelet Count 180 10^3/uL (130-400); Red Cell Dist. Width 12.7 % (11.5-14.5)
[2024-10-10 12:06] LABS: ALT (SGPT) 16 U/L (0-35); AST (SGOT) 27 U/L (14-36); Albumin 3.8 g/dl (3.5-5.0); Alkaline Phosphatase 64 U/L (38-126); Blood Urea Nitrogen 28 mg/dl (7-17); Calcium 9.4 mg/dl (8.4-10.2); Carbon Dioxide 29 mmol/L (22-30); Chloride 107 mmol/L (98-107); Glucose 87 mg/dl (70-99); Magnesium 2.1 mg/dl (1.6-2.3); Potassium 4.6 mmol/L (3.5-5.1); Sodium 139 mmol/L (135-145); Total Protein 6.0 g/dl (6.3-8.2); eGFR > 60.00
== END ==
LOC: OLABN 11:03
PROVIDERS: ATTENDING PHYSICIAN Student in an Organized Health Care Education/Training Program
DX: I10 Essential (primary) hypertension (principal); R35.0 Frequency of micturition; R53.1 Weakness
CPT/HCPCS: 36415; 80053; 83735; 85025